=== PATIENT | male | born 2000 | race Hispanic/Latino ===

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

== ENCOUNTER 2022-02-13 17:45 | Emergency (ER) | payer OTHER ==
[2022-02-13] MEDS ORDERED: Boostrix 0.5 ML (Tdap) VIAL (>/=7 yrs of age) ONE (19:34)
== END 2022-02-13 19:53 | disposition home or self-care (01) ==
LOC: ERS 17:45
DX: T65.891A Toxic effect of other specified substances, accidental (unintentional), initial encounter (principal); T21.6 Corrosion of second degree of trunk; T21.61XA Corrosion of second degree of chest wall, initial encounter; Z23 Encounter for immunization; Y99.0 Civilian activity done for income or pay
CPT/HCPCS: 90471; 90715